=== PATIENT | female | born 1950 | race Caucasian/White ===

== ENCOUNTER 2019-08-17 09:11 | Emergency (ER) | payer MEDICARE, BC ==
[2019-08-17] MEDS ORDERED: Sodium Chloride 0.9% 10 ML Syringe FLUSH PRN (10:51)
[2019-08-17] MEDS ORDERED: cefTRIAXone 2 GM in Sodium Chloride 0.9% 100 ML IV ONE (10:56)
--- NOTE | 2019-08-17 11:00 | EDM.PDOC ---
<Grzegorz Morales - Last Filed: 08/17/19 10:52> ED HPI GENERAL MEDICAL PROBLEM - General Chief Complaint: Skin Complaint Stated Complaint: R EAR REDNESS/R SIDE NECK PAIN Time Seen by Provider: 08/17/19 10:29 Source of Information: Reports: Patient History Limitations: Reports: No Limitations - History of Present Illness INITIAL COMMENTS - FREE TEXT/NARRATIVE: Pt is 69yo female presenting to ED with complaint of right ear pain. Pt states that over the last 24 hours she has noticed her right ear becoming progressively more red and swollen. It is painful to the touch. She has noticed the redness and swelling has begun to spread down her neck and anterior to her ear. Pt does not recall any trauma or insect bites to the area. She denies fever or chills. Pt is concerned for 'blood poisoning', which she states she has had twice in the past, one time due to a hangnail, once due to a perm she received as a child. She does not recall how exactly these were treated but states she was never hospitalized and has never received antibiotics. I assumed by 'blood poisoning' she meant sepsis, but with further questioning it appears they were cases of cellulitis. Onset Date: 08/16/19 Duration: Day(s): Location: Reports: Head (Right ear) Quality: Reports: Dull, Throbbing Severity: Mild Improves with: Reports: None Worsens with: Reports: None Associated Symptoms: Reports: No Other Symptoms - Related Data Allergies Allergy/AdvReac Type Severity Reaction Status Date / Time No Known Allergies Allergy Verified 08/17/19 09:47 Home Meds: Home Meds Cephalexin [Keflex] 500 mg PO Q6HR #40 capsule 08/17/19 [Rx] Clindamycin HCl [Cleocin HCl] 300 mg PO TID #20 capsule 08/17/19 [Rx] amLODIPine Besylate/Benazepril [Amlodipine-Benazepril 10-40 mg] 1 ea PO DAILY [History] Past Medical History - Past Health History Medical/Surgical History: Denies Medical/Surgical History Cardiovascular History: Reports: Hypertension Social & Family History - Tobacco Use Smoking Status *Q: Former Smoker Years of Tobacco use: 25 Packs/Tins Daily: 1 Used Tobacco, but Quit: Yes Month/Year Tobacco Last Used: 11/15 Second Hand Smoke Exposure: No - Caffeine Use Caffeine Use: Reports: Coffee, Tea - Recreational Drug Use Recreational Drug Use: No ED ROS GENERAL - Review of Systems Review Of Systems: See Below Constitutional: Reports: No Symptoms HEENT: Reports: Ear Pain, Hearing Loss (muffled hearing due to swelling). Denies: Ear Discharge Respiratory: Reports: No Symptoms Cardiovascular: Reports: No Symptoms Endocrine: Reports: No Symptoms GI/Abdominal: Reports: No Symptoms : Reports: No Symptoms Musculoskeletal: Reports: No Symptoms Skin: Reports: No Symptoms Neurological: Reports: No Symptoms Psychiatric: Reports: No Symptoms Hematologic/Lymphatic: Reports: No Symptoms Immunologic: Reports: No Symptoms ED EXAM, SKIN/RASH Exam: See Below Exam Limited By: No Limitations General Appearance: Alert, No Apparent Distress Eye Exam: Bilateral Eye: Normal Inspection Ears: Normal Canal, Normal TMs, Other (Swollen, erythematous, tender). No: Normal External Exam Nose: Normal Inspection, Normal Mucosa, No Blood Throat/Mouth: Normal Inspection, Normal Lips, Normal Teeth, Normal Gums, Normal Oropharynx, Normal Voice, No Airway Compromise Head: Atraumatic, Normocephalic Neck: Supple, Full Range of Motion, Other (Redness spreading down right lateral inferior to pinna neck, tender to touch) Respiratory/Chest: No Respiratory Distress, Lungs Clear, Normal Breath Sounds, No Accessory Muscle Use, Chest Non-Tender Cardiovascular: Normal Peripheral Pulses, Regular Rate, Rhythm, No Edema, No Gallop, No JVD, No Murmur, No Rub GI/Abdominal: Normal Bowel Sounds, Soft, Non-Tender, No Organomegaly, No Distention, No Abnormal Bruit, No Mass (Female) Exam: Deferred Rectal (Female) Exam: Deferred Back Exam: Normal Inspection, Full Range of Motion, NT Extremities: Normal Inspection, Normal Range of Motion, Non-Tender, No Pedal Edema, Normal Capillary Refill Neurological: Alert, Oriented, CN II-XII Intact, Normal Cognition, Normal Gait, Normal Reflexes, No Motor/Sensory Deficits Psychiatric: Normal Affect, Normal Mood Skin: Warm, Dry, Intact, Erythema (right ear), Increased Warmth (right ear) Location, Skin: Head, Neck Characteristics: Erythematous Associated features: Warmth, Tenderness, Swelling Lymphatic: No Adenopathy Course - Vital Signs Last Recorded V/S: Last Vital Signs Temp 98.2 F 08/17/19 09:50 Pulse 80 08/17/19 09:50 Resp 14 08/17/19 09:50 BP 136/63 08/17/19 09:50 Pulse Ox 95 08/17/19 09:50 - Orders/Labs/Meds Labs: Laboratory Tests 08/17/19 08/17/19 Range/Units 11:20 11:20 WBC 11.92 H (3.98-10.04) K/mm3 RBC 5.15 (3.98-5.22) M/mm3 Hgb 15.9 H D (11.2-15.7) gm/dl Hct 47.8 H (34.1-44.9) % MCV 92.8 (79.4-94.8) fl MCH 30.9 (25.6-32.2) pg MCHC 33.3 (32.2-35.5) g/dl RDW Std Deviation 47.0 H (36.4-46.3) fL Plt Count 265 (182-369) K/mm3 MPV 9.2 L (9.4-12.3) fl Neutrophils % (Manual) 77 H (40-60) % Band Neutrophils % 0 (0-10) % Lymphocytes % (Manual) 20 (20-40) % Atypical Lymphs % 0 % Monocytes % (Manual) 3 (2-10) % Eosinophils % (Manual) 0 L (0.7-5.8) % Basophils % (Manual) 0 L (0.1-1.2) Platelet Estimate Adequate RBC Morph Comment Normal C-Reactive Protein 1.8 H* (<1.0) mg/dL Meds: Medications Discontinued Medications Generic Name Dose Route Start Last Admin Trade Name Freq PRN Reason Stop Dose Admin Ceftriaxone Sodium 2 gm/ 100 mls @ 200 mls/hr 08/17/19 10:56 08/17/19 11:47 Sodium Chloride IV 08/17/19 11:25 200 mls/hr ONETIME ONE Administration Clindamycin Phosphate 900 mg/ 106 mls @ 200 mls/hr 08/17/19 12:26 08/17/19 12 :52 Sodium Chloride IV 08/17/19 12:57 200 mls/hr ONETIME ONE Administration Sodium Chloride 10 ml 08/17/19 10:51 08/17/19 11:48 Saline Flush FLUSH 10 ml ASDIRECTED PRN Administration Keep Vein Open - Re-Assessments/Exams Free Text/Narrative Re-Assessment/Exam: Pt is 69yo female with severe cellulitis of right ear. No obvious origin at this time. Will obtain CBC with manual diff as well as CT of head to assess for mastoiditis. Pt will likely need dose of IV antibiotics due to rapidly progressing nature of the cellulitis. 08/17/19 11:09 Departure - Departure Disposition: Home, Self-Care 01 Clinical Impression: Cellulitis Qualifiers: Site of cellulitis: face Qualified Code(s): L03.211 - Cellulitis of face - Discharge Information Prescriptions: Cephalexin [Keflex] 500 mg PO Q6HR #40 capsule Clindamycin HCl [Cleocin HCl] 300 mg PO TID #20 capsule Instructions: Cellulitis, Adult Referrals: Katie Del Castillo PA-C [Primary Care Provider] - Forms: ED Department Discharge Additional Instructions: Clindamycin 300 mg 3 times daily, take her next dose this evening and then continue that 3 times daily until gone, cephalexin 500 mg 4 times daily. Take your first dose later this afternoon, second dose bedtime and then continue that 4 times daily until gone. See Katie at the clinic Tuesday for recheck, return to ED over the weekend as needed if symptoms worsening in any way as discussed. <Dheeraj Small - Last Filed: 08/23/19 09:38> Course - Re-Assessments/Exams Free Text/Narrative Re-Assessment/Exam: 08/17/19 14:23 initial hx and exam was done by Emir Proctor, 3rd year medical student. I have also examined patient. I agree with his hx and exam as documented. We have given Rocephin 2 grams IV, clindamycin 900 mg IV. Discharge instr. as documented. Departure - Departure Time of Disposition: 14:30 Condition: Fair
--- NOTE | 2019-08-17 11:58 | CT ---
CT maxillofacial Technique: Multiple axial sections through the facial structures were obtained. Intravenous contrast was not utilized. Comparison: No prior correlating study is available. Findings: Submandibular salivary glands and parotid salivary glands appear within normal limits. Right and left globes are symmetric. Extraocular muscles are symmetric. No retrobulbar mass is seen. Multiple small lymph nodes are scattered within the neck which are felt to be within normal limits. No mass is appreciated. Parapharyngeal soft tissues appear within normal limits. There is soft tissue thickening being seen within the pinna of the right ear as well as at the base of the ear. No low density fluid collections are seen to indicate abscess. Paranasal sinuses showed nothing acute. Middle ear cavities are clear. Nothing acute is seen within the mastoid sinuses. Impression: 1. Soft tissue thickening within the pinna of the right ear as well as at the base of the right ear. Findings presumably represent cellulitis. No abscess is seen. 2. No evidence of mastoiditis. 3. Other normal findings as noted above. Diagnostic code #3
[2019-08-17] MEDS ORDERED: Clindamycin Phosphate 900 MG in Sodium Chloride 0.9% 100 ML IV ONE (12:26)
== END 2019-08-17 15:35 | disposition home or self-care (01) ==
LOC: JD.ED 09:11
DX: H60.11 Cellulitis of right external ear (principal); I10 Essential (primary) hypertension; Z87.891 Personal history of nicotine dependence; Z79.899 Other long term (current) drug therapy
CPT/HCPCS: 36415; 70486; 85007; 85027; 86140; 96365; 96367; 99284; J0696; J3490; J7030; 99283